=== PATIENT | male | born 1940 | race Caucasian/White ===

== ENCOUNTER 2017-03-02 18:24 | Inpatient (IN) ==
[2017-03-02] MEDS ORDERED: ZOFRAN IV ONE (19:10)
[2017-03-02] MEDS ORDERED: MORPHINE IV ONE (19:10)
[2017-03-02] MEDS ORDERED: NS 500 ML IV ONE (19:10)
[2017-03-02 19:31] LABS: MANUAL DIFF NEEDED? NO
[2017-03-02 19:36] LABS: BASO% 0.2 % (0.0-0.8); EOS# 0.02 X1000 (0.0-0.7); EOS% 0.2 % (0.0-10.0); HEMATOCRIT 48.7 % (42.0-52.0); IMM GRAN# 0.03 X1000 (0.0-0.04); IMM GRAN% 0.2 % (0.0-0.5); LYMPH% 7.9 % (20.5-51.1); MCH 30.2 PG (27-31); MCHC 34.9 g/dL (33-37); MCV 86.7 FL (81-99); MONO# 0.84 X1000 (0.11-0.59); MONO% 6.7 % (1.7-9.3); MPV 10.3 FL (7.4-10.4); NEUT% 84.8 % (42.2-75.2); PLT 206 X1000 (130-400); RBC 5.62 XMIL (4.7-6.1)
--- NOTE | 2017-03-02 19:43 | PROVIDER DOCUMENTATION ---
HPI-Abdominal Pain/GI Problem - General Chief Complaint: Abdominal Pain Stated Complaint: GENERAL Time Seen by Provider: 03/02/17 18:44 Source: patient Allergies/Adverse Reactions: Patient Allergies Allergy/AdvReac Type Severity Reaction Status Date / Time No Known Allergies Allergy Unverified 02/16/16 18:59 Home Medications: Home Medication List Medication Instructions Recorded Confirmed Last Taken Type Aspirin [Adult Low Dose Aspirin EC] 81 mg PO QAM 02/16/16 01/03/17 01/01/17 History Levothyroxine Sodium 50 mcg PO DAILY 02/16/16 01/03/17 01/02/17 08:00 History Tamsulosin [Flomax] 0.4 mg PO DAILY 01/03/17 01/03/17 01/02/17 08:00 History - History of Present Illness-ABD Nature of Presenting Problems: Pt is a 76 y/o M c chief complaint of generalized abd pain, body aches, chills x 1-2 days that are becoming progressively worse. Pt was contacted this afternoon by Dr. Ladd (GI) who reviewed his recent labs and noted an increased bilirubin. Pt has been working with his PCP, Dr. Hansen and Dr. Ladd to manage complications of cholecystectomy that was done over a year ago. On 01/03, Dr Hansen performed a choleangiopancreatography, removed a stone in the common bile duct, and placed a stent. Pt states he has been improved by the procedure but now feels that he is having biliary problems again. On arrival, pt is in minimal distress and has a low grade fever of 99F. Review of Systems - Adult - REVIEW OF SYSTEMS - ADULT Constitutional: reports: see HPI, chills. denies: fatique Eyes: reports: no symptoms reported. denies: blurred vision, double vision Ears, Nose, Mouth & Throat: reports: no symptoms reported. denies: ear pain, nose pain, throat pain Cardiovascular: reports: no symptoms reported. denies: chest pain, orthopnea Respiratory: reports: no symptoms reported. denies: cough, shortness of breath Gastrointestinal: reports: see HPI, abdominal pain. denies: nausea Genitourinary: reports: no symptoms reported. denies: dysuria, frequent UTI's, hematuria Musculoskeletal: reports: no symptoms reported. denies: joint pain, joint swelling Integumentary: reports: no symptoms reported Neurological: reports: no symptoms reported. denies: ataxia, loss of balance Psychiatric: reports: no symptoms reported. denies: anxiety, emotional problems Endocrine: reports: no symptoms reported. denies: cold intolerance, heat intolerance Hematologic/Lymphatic: reports: no symptoms reported. denies: blood clots, low blood count Allergic/Immunologic: reports: no symptoms reported All Other Systems: Reviewed and Negative Past History - Adult - PAST MEDICAL HISTORY-ADULT Review of Records: reports: Old Records Reviewed, Nursing Assessment Review, Medications Reviewed, Social history reviewed & non-contributory. Major Childhood Illnesses: reports: denies history Cardiovascular: reports: denies history Respiratory: reports: denies history Gastrointestinal: reports: cholelithiasis Obstetrical/Gynecological: reports: denies history Genitourinary: reports: denies history Musculoskeletal: reports: denies history Neurological: reports: denies history Endocrine/Immune: reports: denies history Other Conditions: reports: denies history - IMMUNIZATION STATUS Childhood Immunizations: See Nurse Assessment Flu Vaccine: See Nurse Assessment - FAMILY HISTORY Family History: reviewed, not pertinent Physical Exam-General - PHYSICAL EXAM-ADULT Initial Vital Signs Reviewed: Yes - CONSTITUTIONAL General Appearance: alert, no apparent distress - EYES Eyes: PERRL/EOMI, pink conjunctivae - HEAD, EARS, NOSE, MOUTH & THROAT HENMT: normocephalic/atraumatic, moist mucous membranes, normal ENT inspection - NECK Neck: normal inspection - RESPIRATORY Respiratory: chest non-tender, lungs clear, normal breath sounds - CARDIOVASCULAR Cardiovascular: normal peripheral pulses, regular rate, rhythm - GASTROINTESTINAL (ABDOMEN) Abdominal Exam: normal bowel sounds, non tender, soft - LYMPHATIC Lymphatic: no adenopathy - MUSCULOSKELETAL Back Exam: normal inspection, no CVA tenderness, no vertebral tenderness Extremity: normal range of motion, non-tender, normal inspection - SKIN Integumentary: normal color, normal turgor, warm/dry - NEUROLOGIC Neurologic: grossly normal, no motor/sensory deficits - PSYCHIATRIC Psych/Mental Status: normal mood/affect, normal thought content, normal thought process, oriented x 3 Progress - PLAN OF CARE/RESULTS Progress/Plan/Lab Results: Vital Signs - 8 hr 03/02/17 18:38 Temperature 99.4 F Pulse Rate 90 Respiratory Rate 18 Blood Pressure 186/82 O2 Sat by Pulse Oximetry 99 Laboratory Results - last 24 hr 03/02/17 19:14 WBC 12.62 H RBC 5.62 Hgb 17.0 Hct 48.7 MCV 86.7 MCH 30.2 MCHC 34.9 RDW Std Deviation 14.2 Plt Count 206 MPV 10.3 Immature Gran % (Auto) 0.2 Neut % (Auto) 84.8 H Lymph % (Auto) 7.9 L Screven % (Auto) 6.7 Eos % (Auto) 0.2 Baso % (Auto) 0.2 Immature Gran # (Auto) 0.03 Neut # (Auto) 10.71 H Lymph # (Auto) 1.00 L Screven # (Auto) 0.84 H Eos # (Auto) 0.02 Baso # (Auto) 0.02 Orders Category Date Time Status Saline Loc DIRECTED Care 03/02/17 18:45 Active NPO Diet 03/02/17 18:45 Active CHEST-2 VIEWS [RAD] Stat Exams 03/02/17 19:[address] ABD/PELVIS W/ IV CONT ONLY [CT] Stat Exams 03/02/17 19:09 Ordered AMYLASE [CHEM] Stat Lab 03/02/17 19:14 Received CBC WITH ELECTRONIC DIFF [HEME] Stat Lab 03/02/17 19:14 Completed COMPREHENSIVE METABOLIC PANEL [CHEM] Stat Lab 03/02/17 19:14 Received INFLUENZA SCREEN A/B Stat Lab 03/02/17 19:36 Ordered LIPASE [CHEM] Stat Lab 03/02/17 19:14 Received URINALYSIS W/POSS RFLX CULT-1 [URINALYSIS] Stat Lab 03/02/17 18:45 Uncollected 0.9% Sodium Chloride Inj [Ns] 500 ml Med 03/02/17 19:10 Active IV 999 mls/hr Morphine Med 03/02/17 19:10 Discontinued 4 mg IV NOW ONE Ondansetron [Zofran] Med 03/02/17 19:10 Discontinued 4 mg IV NOW ONE Result Diagrams: 03/02/17 19:14 03/02/17 19:14 - CT/MRI 1 CT Study: Abdomen, Pelvis Impression: Abnormal ( 1.Interval placement of a biliary stent as described. The proximal tip may be in the stump of the cystic duct rather than in the common bile duct or common hepatic duct. 2.Interval improvement of extrahepatic and intrahepatic biliary dilatation since the previous study. 3.Extensive diverticulosis coli but no evidence of diverticulitis. 4.Incidental/nonacute findings detailed above but no other sign of acute pathology.) - CONSULTS/PCP/HOSPITALIST Notification #1 *Consult/PCP/Hospitalist*: Dr. Ladd (GI) Time Discussed: 20:55 Reason/Comments: Give IV Cipro 4mg. Admit. Consult surgery. #2 Consult: Dr. Cunningham (Hospitalist) Time Discussed: 21:04 (Will see pt in the ER and consult surgery and GI. ) Departure - Departure Date of Disposition Decision: 03/02/17 Time of Disposition Decision: 20:56 DIAGNOSIS: Cholangitis due to bile duct calculus with obstruction Disposition: ADMITTED INPATIENT 09 Certified Medical Emergency: Emergent Condition: Stable Referrals and Follow-Ups: Ewelina Doll MD [Primary Care Provider] - - Critical Care Note This patient required my direct & personal management of CC.: No Attestation - Physician/ ZAY Attestation Patient care was provided by Advanced Practice Provider:: Yes Advanced Practice Provider:: Yemi Burleson Advanced Practice Provider documentation review:: The Mid-level provider documentation, treatment plan and medical decision making was reviewed by the physician who agrees with all treatment and medical decision making by the P.
[2017-03-02 19:55] LABS: AGAP 16; ALBUMIN 4.5 g/dL (3.5-5.0); ALKALINE PHOSPHATASE 163 U/L (32-122); AMYLASE 84 U/L (20-200); BUN 11 mg/dL (8-22); CHLORIDE 99 mmol/L (98-107); COSMO 278; GOT 78 U/L (10-34); GPT 105 U/L (10-44); LIPASE 76 U/L (13-60); POTASSIUM 4.7 mmol/L (3.5-5.1); SODIUM 139 mmol/L (136-145); TCO2 24 mmol/L (25-35); TOTAL PROTEIN 7.9 g/dL (6.3-8.3)
--- NOTE | 2017-03-02 20:02 | Diag Imaging Result Doc PS360 ---
EXAM: CHEST-2 VIEWS INDICATION: chills, body aches TECHNIQUE: 2 views COMPARISON: 12/31/2016 FINDINGS: The lungs are grossly clear. There is no discrete pleural fluid collection or pneumothorax. The cardiomediastinal silhouette and central vasculature are grossly unremarkable. IMPRESSION: No evidence of acute pathology by plain radiograph. Electronically signed by Yemi Chavez 03/02/2017 7:59 PM
--- NOTE | 2017-03-02 20:42 | Diag Imaging Result Doc PS360 ---
EXAM: CT ABD/PELVIS W/ IV CONT ONLY INDICATION: chills, body aches, susp biliary dz. COMPARISON: 01/01/2017 FINDINGS: There is a punctate calcified granuloma at the left lung base. There are calcified granulomata in the spleen. There has been a previous cholecystectomy. There has been interval placement of a biliary stent. The distal tip of the stent is in the lumen of the duodenum. The proximal tip of the stent may actually be in the stump of the cystic duct. The common hepatic duct measures up to 9.7 mm in diameter (10.6 mm previously). The common bile duct measures up to 10 mm in diameter (11 mm previously). There is still mild intrahepatic biliary dilatation, but it has improved. There is a punctate hypodensity involving the right hepatic lobe on image 19 of series 3 that is stable. This probably represents a tiny cyst. There is no evidence of pancreatic ductal dilatation. No discrete pancreatic mass is identified. The appendix is normal. There is severe diverticulosis coli mainly involving the descending and sigmoid colon. However, there is no evidence of diverticulitis. The kidneys are essentially unremarkable and stable. The urinary bladder is unremarkable. There is moderate patchy aortic atherosclerotic calcification but there is no evidence of aneurysm. No focal inflammatory changes, free abdominal gas, or free fluid is appreciated. The remainder of the solid viscera of the abdomen and pelvis and the remainder of the GI tract are essentially unremarkable. There is stable lumbar spondylosis. The bony structures are grossly intact. IMPRESSION: 1.Interval placement of a biliary stent as described. The proximal tip may be in the stump of the cystic duct rather than in the common bile duct or common hepatic duct. 2.Interval improvement of extrahepatic and intrahepatic biliary dilatation since the previous study. 3.Extensive diverticulosis coli but no evidence of diverticulitis. 4.Incidental/nonacute findings detailed above but no other sign of acute pathology. Electronically signed by Yemi Chavez 03/02/2017 8:40 PM
[2017-03-02] MEDS ORDERED: CIPRO 400 MG/D5W 400 MG/200 ML IVPB IV SCH (21:00)
[2017-03-02] MEDS ORDERED: CIPRO 400 MG/D5W 400 MG/200 ML IVPB IV ONE (22:00)
[2017-03-02] MEDS ORDERED: MOTRIN PO ONE (22:05)
[2017-03-02] MEDS ORDERED: MOTRIN ONE (22:06)
[2017-03-02 22:17] LABS: URINE CULTURE NEEDED? NO; URINE MICRO REVIEW NEEDED? NO; URINE SOURCE CLEAN CATCH
[2017-03-02 22:20] LABS: BILIRUBIN URINE NEGATIVE (NEGATIVE); BLOOD URINE TRACE (NEGATIVE); COLOR YELLOW; GLUCOSE URINE NEGATIVE (NEGATIVE); LEUKOCYTES URINE NEGATIVE (NEGATIVE); NITRITE URINE NEGATIVE (NEGATIVE); PROTEIN URINE TRACE mg/dL (NEGATIVE); TURBIDITY URINE CLEAR (CLEAR); UR EPITHELIAL CELLS <10 /HPF (<10); URINE BACTERIA NEGATIVE /HPF; URINE RBC <10 /HPF (<10); URINE WBC <10 /HPF (<10); UROBILINOGEN URINE NORMAL (NORMAL)
[2017-03-02 22:23] LABS: SP GRAVITY URINE 1.005
[2017-03-02] MEDS ORDERED: ZOFRAN IV PRN (22:48)
[2017-03-02] MEDS ORDERED: MORPHINE IV PRN (22:48)
[2017-03-02] MEDS: FLAGYL 500 MG/NS 500 MG/100 ML IVPB IV SCH (23:19)
[2017-03-02] MEDS: NS 1,000 ML IV SCH (23:20)
--- NOTE | 2017-03-03 00:01 | HISTORY AND PHYSICAL ---
PRIMARY CARE PHYSICIAN: Dr. Kamaljit Doll. REASON FOR ADMISSION: A 2-day history of weakness, 1-day history of fever and chills. HISTORY OF PRESENT ILLNESS: Mr. Sotero Snowden is a 76-year-old man, with past medical history of BPH and hypothyroidism, who is being followed by Dr. Hansen's service, regarding issues relating to his biliary tree. In 2016, patient had an elective laparoscopic cholecystectomy, which was complicated with subsequent bile leak. Since then, he has had a total of 3 ERCP procedures. The 1st one was done to put a stent to seal off the leak, and the second on was done to remove the stent, and the 3rd one was done less than 2 months ago, when it was found the patient was having fevers suggestive of cholangitis. At that time, they noticed a stone in the biliary tree, was an obstructing stone in the biliary tree, and it could only be partially removed, and a stent was placed there. Patient was put on ursodeoxycholic acid, to hopefully soften the stone, and allow for passage of the stone. The patient had been doing well up until about 2 days ago, when he started feeling weak, and developed diffuse aches and pains, mainly in his joints. He also had some epigastric discomfort. Today, the patient is having some intermittent fevers and chills, with rigors over the course of the day. Contacted Dr. Ladd, who was covering for Dr. Hansen, and they advised him to come to the ER to be evaluated further. He denies any pale stools. No itching. He does admit to having darker urine over the last couple of days. He has vomited once, but was nonbloody. Also the bowel movements, although, he says he has not been eating much for the last 2 days. No genitourinary complaints. No cardiorespiratory complaints. No neurological complaints. He admits to having a rash on his back and his chest, but this is usually related to heat rash he gets during the hot season. REVIEW OF SYSTEMS: A total of 12 systems review was done, positive findings were as noted above. ALLERGIES: None. MEDICATIONS: He is on Flomax 0.4 mg daily, levothyroxine 50 mcg daily, aspirin 81 mg daily. FAMILY HISTORY: Notable for Alzheimer's disease and stomach cancer in first- degree relatives. 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 He has also had umbilical hernia repair. He has had the aforementioned cholecystectomy , and 3 ERCP procedures. He has also had a tonsillectomy as child. SOCIAL HISTORY: Does not smoke, drink, or do drugs. for 4 year. LAB WORK: CT scan done today shows a stent in the biliary tree, but mainly in the cystic duct. There was also noted interval improvement of the extrahepatic and intrahepatic biliary dilatation on previous study. Diverticulosis is also noted. Chest x-ray was also done, and it showed no acute pathology. White count 12,000, hemoglobin and hematocrit 17 and 47, platelets 206,000 with 84% neutrophils. Glucose 116, total bilirubin is 7, up from 1.7. That is about from 1.7 less than a week ago. AST 78, ALT 105, alkaline phosphatase 163. Lipase 76. PHYSICAL EXAMINATION: VITAL SIGNS: Blood pressure is 186/82, heart rate is 90, respirations 18, temperature is 99.4, and 99% on room air. GENERAL: He is a pleasant, elderly, man, who is not in acute distress. He is A and O x3, with normal mood and affect. HEENT: Head is normocephalic, atraumatic. Eyes: BONILLA, EOMI. He is deeply icteric. He is not pale. ENT and oropharynx exam is grossly normal. No central cyanosis. NECK: Supple. No JVD or carotid bruit. No thyromegaly. LYMPH NODE: The neck and supraclavicular area are negative. CHEST: Reveals a few wheezes and rhonchi, with decreased entry in the bases. CARDIOVASCULAR: First and second heart sounds heard. No gallops or rubs. Rhythm is regular. ABDOMEN: Slightly protuberant, soft. No tenderness elicited. No mass or organomegaly appreciated. Bowel sounds are positive. RECTAL: Deferred. EXTREMITIES: Neurovascularly intact. No edema, clubbing or cyanosis. SKIN: Intact without breakdown, lesions or erythema. MUSCULOSKELETAL: Grossly normal. ASSESSMENT: 1. Acute cholangitis, probably secondary to sludge versus stone. 2. BPH. 3. Hypothyroidism. 4. Obstructive jaundice, secondary to possible stones or sludge. PLAN: At this time, Dr. Ladd was contacted, and she notified Dr. Hansen, and he recommended patient to be started on ciprofloxacin IV. I will add on Flagyl for anaerobic coverage, since there is evidence of infecdtion of the biliary tree. Dr. Villa, who is his surgeon of note, and is following him will be consulted to also see. IV fluid hydration will be initiated, and he will be treated symptomatically pending the GI evaluation. The patient will be kept NPO pending further evaluation. Dr. Mari, or his associate, will take over management of the patient in the morning. cc: MD Samantha Connor MD Mussarrat Yousuf MTDD
[2017-03-03] MEDS: FLAGYL 500 MG/NS 500 MG/100 ML IVPB IV SCH ×4 (04:03→22:33)
[2017-03-03] MEDS: NS 1,000 ML IV SCH ×2 (05:43→16:42)
[2017-03-03 06:15] LABS: BASO% 0.2 % (0.0-0.8); EOS# 0.01 X1000 (0.0-0.7); EOS% 0.1 % (0.0-10.0); HEMATOCRIT 42.9 % (42.0-52.0); HEMOGLOBIN 14.6 g/dL (14.0-18.0); IMM GRAN# 0.02 X1000 (0.0-0.04); IMM GRAN% 0.2 % (0.0-0.5); LYMPH# 0.73 X1000 (1.2-3.4); LYMPH% 6.3 % (20.5-51.1); MANUAL DIFF NEEDED? YES; MCH 29.9 PG (27-31); MCV 87.7 FL (81-99); MONO% 7.7 % (1.7-9.3); MPV 10.7 FL (7.4-10.4); NEUT% 85.5 % (42.2-75.2); PLT 168 X1000 (130-400); RBC 4.89 XMIL (4.7-6.1)
[2017-03-03 06:40] LABS: ALBUMIN 3.5 g/dL (3.5-5.0); TOTAL BILIRUBIN 4.67 mg/dL (0.20-1.00); TOTAL PROTEIN 6.3 g/dL (6.3-8.3)
[2017-03-03 07:16] LABS: BANDS 12 % (0-1); LYMPHS 8 % (21-51); MONO 4 % (1-9)
[2017-03-03] MEDS: SYNTHROID PO SCH (08:08)
[2017-03-03] MEDS: CIPRO 400 MG/D5W 400 MG/200 ML IVPB IV SCH ×2 (08:08→21:18)
[2017-03-03] MEDS: FLOMAX PO SCH (08:08)
--- NOTE | 2017-03-03 12:19 | PROGRESS NOTE ---
DATE: 03/03/2017 SUBJECTIVE: The patient states that he feels a little bit better today. The worst aspect of his admission was he had a rigor down in the emergency room and vomited several times. He states that over the course of last night he was coughing up some green, thick stuff. That seems to have dissipated and gone away. He does not feel as though he aspirated though while he was vomiting. The patient's chart was reviewed in its entirety in order to get a clear picture of the time course of onset of symptoms and his past medical history. OBJECTIVE: Vital signs: 98.3, 77, 17, 131/75, 97% saturated on room. General: In general, he is a well-developed, white male, in no acute distress. He is alert, oriented, conversive, and appropriate. Cardiovascular: Regular without appreciable murmur or gallop. Lungs: The patient had a faint end-expiratory wheeze in the right upper lobe distribution but was otherwise moving air well and in no respiratory distress. Abdomen: Soft. Bowel sounds were present. Extremities: No peripheral edema. LABORATORY: White count was 11.6, hematocrit 42.9, creatinine 1.2, total bilirubin 4.67. ASSESSMENT AND PLAN: 1. It is likely the patient will have an ERCP tomorrow with removal of the long stent and hopefully the previously noted stone in the common bile duct will be able to be removed. It is likely that he will have to have another stent but if the stone is actually removed then probably a shorter stent can be used. 2. The patient will remain on antibiotics in the event that the above-mentioned rigor indicated a bacteremia from ascending cholangitis. We will continue to monitor liver function tests and keep on antibiotics as long as appropriate. The patient stated that blood cultures were drawn but I do not see any results in the microbiology section of the chart. 3. The patient will remain NPO until definitive procedures can be performed. He is reasonably comfortable expressed no acute needs. cc: MD Samantha Morgan MD
[2017-03-03] MEDS: TYLENOL PO PRN (13:04)
--- NOTE | 2017-03-03 16:44 | CONSULTATION ---
DATE OF CONSULTATION: 03/03/2017 REASON FOR CONSULTATION: Cholangitis. HISTORY OF PRESENT ILLNESS: A 76-year-old male known to our service for cholecystectomy last year, complicated by postoperative bile leak and retained common bile duct stone. He has been treated with laparoscopic washout and drain placement which has subsequently been removed as well as endoscopic retrograde cholangiopancreatography with partial stone removal and stent placement. As of last month and a new stent was placed and an impacted stone in the ampulla was only partially removed. He had been doing okay until 2 nights ago he started experiencing some chills, followed by a fever as high as 103 yesterday and overall body aches. His laboratory evaluation revealed elevated bilirubin and he has been admitted for further care. PAST MEDICAL HISTORY: Hypothyroidism, BPH, hyperlipidemia, osteoarthritis, history of AV node dysfunction, status post ablation. PAST SURGICAL HISTORY: Laparoscopic cholecystectomy. Hernia repair. Tonsillectomy and adenoidectomy. ERCP with stent placements. HOME MEDICATIONS: Levothyroxine, aspirin, Flomax, ursodiol. ALLERGIES: No known drug allergies. FAMILY HISTORY: Reviewed and noncontributory. SOCIAL HISTORY: No tobacco, alcohol or illicit drug use. He is . REVIEW OF SYSTEMS: Ten systems reviewed and negative except as noted above. PHYSICAL EXAMINATION: Vital Signs: Temperature 98.3 degrees, pulse 77, respirations 17, blood pressure 131/75, O2 saturation 97%. General: Well-developed, well-nourished male, in no distress who looks his stated age. HEENT: Normocephalic, atraumatic. Extraocular muscles intact. Pupils equal, round, reactive to light. Sclerae mildly icteric. Moist mucous membranes. Neck: Supple. No thyromegaly. CARDIOVASCULAR: Regular rate and rhythm. Respiratory: Bilateral equal breath sounds. No work of breathing. GI: Soft, nontender, nondistended. No organomegaly or mass. Skin: Warm and dry. Perhaps some mild jaundice is noted. Extremities: No clubbing, cyanosis, or edema. Musculoskeletal: Moves all extremities equally and well. LABORATORY: White blood cell count 11.7, hemoglobin 14.6, sodium 135, potassium 5, chloride 100, CO2 of 22, BUN 17, creatinine 1.2, glucose 98, total bilirubin 7 yesterday, 4.7 today. AST 50, ALT 74, alkaline phosphatase 120. IMAGING: CT of abdomen pelvis was reviewed which shows a biliary stent with the distal tip in the lumen of the duodenum and the proximal tip possibly in the cystic duct. The common hepatic duct measures 9.7 mm and the common bile duct measures 10 mm. There is mild intrahepatic biliary dilation, but this is overall improved. ASSESSMENT/PLAN: A 76-year-old male with probable common bile duct obstruction secondary to choledocholithiasis or malpositioned or obstructed stent. He has some signs of early cholangitis, although he is hemodynamically stable. I would continue with his Zosyn and consult Gastroenterology for endoscopic retrograde cholangiopancreatography to attempt to remove the remaining stone and/or reposition the stent. If nonoperative measures fail, then open common bile duct exploration would be an option. cc: MD Samantha Lee MD
--- NOTE | 2017-03-03 19:09 | CONSULTATION ---
DATE OF CONSULTATION: 03/03/2017 REFERRING PHYSICIAN: Ting Cunningham M.D. PRIMARY CARE PROVIDER: Eleazar Doll M.D. PRIMARY MACHINE PLASTER MIXER: Marco Hansen M.D. PRIMARY SURGEON: Sergey Villa M.D. INDICATION FOR CONSULTATION: 1. Nausea with vomiting. 2. Fever. 3. History of retained common bile duct stone. 4. Probable ascending cholangitis. HISTORY OF PRESENT ILLNESS: The patient is a 76-year-old white male who underwent an elective laparoscopic cholecystectomy in January 2016. His postop course was complicated by a bile leak. Since that time, he has undergone 3 ERCP procedures. Initially, a stent was placed to seal off the leak. The 2nd procedure, he had removal of the stent with good success. However, approximately 2 months ago he had a 3rd ERCP due to the presence of a common bile duct stone. Unfortunately, the largest portion of the common bile duct stone was not retrieved during the ERCP. He underwent stent placement during the ERCP. A stent was placed in the common bile ducts with plans for repeat ERCP and stent removal within the next month. However, the patient contacted our office via the answering service. He reports the onset of fever to 101.4, chills and right upper quadrant pain. In the emergency room, he had an episode of severe chills, followed by nausea with vomiting and increased epigastric and right upper quadrant pain. On labs, he was found to have an elevated white blood cell count. His CT scan showed the presence of a stent in the biliary tree with part of the stent being visualized in the cystic duct. There was interval improvement of the intrahepatic and extrahepatic dilation. There was no comment made with regard to the absence or presence of a common bile duct stone. He was noted to have diverticulosis, but no evidence of diverticulitis. On serum chemistry, his bilirubin was elevated to 7, up from 1.7. He also was noted to have a mild elevation of his liver function tests. His clinical presentation is consistent with ascending cholangitis. PAST MEDICAL HISTORY: 1. Common bile duct stones. 2. History of colon polyps. 3. AV jackie reentry tachycardia. 4. Hyperlipidemia. 5. Osteoporosis. 6. Cardiovascular disease status post EP study with ablation. 7. Elevated PSA. 8. History of gallstones, status post cholecystectomy. 9. Hypothyroidism. PAST SURGICAL HISTORY: 1. Tonsillectomy. 1. Cholecystectomy complicated by bile duct leak. He is status post ERCP x3. 2. Umbilical hernia. MEDICATION ALLERGIES: None. HOME MEDICATIONS: 1. Ursodiol. 2. Flomax. 3. Levothyroxine. 4. Aspirin 81 mg. REVIEW OF SYSTEMS: Remarkable for diffuse abdominal tenderness, greatest in the right upper quadrant. He reports interval resolution of the nausea with vomiting. He is having flatus, but denies defecation since admission. He notes mild nausea, but no heartburn, indigestion, or chest pain. PHYSICAL EXAMINATION: General: He is resting comfortably in the bed. Vital signs: His blood pressure is 142/69, pulse 73, respirations 17, temperature of 97.9 degrees. HEENT: Remarkable for mild jaundice. His conjunctivae are normal. His oropharyngeal mucosa membranes are moist. Pulmonary: Lungs are clear to auscultation with normal expiratory effort. Cardiovascular: Reveals regular rate and rhythm with no gallops or rubs. Abdominal: Reveals normoactive bowel sounds. The abdomen is soft with moderate right upper quadrant tenderness and mild diffuse tenderness. There is no rebound or guarding. There is no organomegaly. Extremities: Bilaterally are negative for cyanosis, clubbing, or edema. OBJECTIVE DATA: Remarkable for a hemoglobin of 14.6 with hematocrit of 42.9, and a white count 11.67. He has 168,000 platelets. Sodium is 135, potassium 5, chloride 100, CO2 22, BUN 17, creatinine 1.2 with a glucose of 98. His calcium is 9, total bilirubin is 4.67 which is an interval reduction from his admission bilirubin of 7. His AST is 50 with an ALT of 74 and alkaline phosphatase of 120. Total protein is 6.3 with an albumin of 3.5. IMPRESSION: 1. Ascending cholangitis. 2. Retained common bile duct stone. 3. Jaundice. 4. Right upper quadrant pain. RECOMMENDATION: 1. The patient is currently receiving ciprofloxacin and Flagyl for ascending cholangitis. I would continue these antibiotics. 2. He is on the schedule for endoscopic retrograde cholangiopancreatography by Dr. Marco Hansen in the morning. 3. Continue supportive care. 4. The patient is currently nothing per oral due to the nausea with vomiting. We will continue this along with IV fluids for hydration. 5. Additional recommendations to follow by Dr. Marco Hansen who will assume care on 03/04/2017. cc: MD Samantha Mathur MD Olakunle P. Akinsoto, MD Khurshid Yousuf, MD Matthew L. Figh, MD MTDD
[2017-03-04] MEDS: NS 1,000 ML IV SCH ×4 (02:24→22:45)
[2017-03-04] MEDS: CIPRO 400 MG/D5W 400 MG/200 ML IVPB IV SCH ×2 (08:26→21:03)
[2017-03-04 08:36] LABS: BASO% 0.2 % (0.0-0.8); EOS# 0.24 X1000 (0.0-0.7); EOS% 2.8 % (0.0-10.0); HEMOGLOBIN 13.9 g/dL (14.0-18.0); LYMPH% 8.2 % (20.5-51.1); MANUAL DIFF NEEDED? NO; MCH 29.6 PG (27-31); MCHC 33.9 g/dL (33-37); MCV 87.4 FL (81-99); MONO# 0.85 X1000 (0.11-0.59); MONO% 9.9 % (1.7-9.3); MPV 10.4 FL (7.4-10.4); NEUT% 78.9 % (42.2-75.2); PLT 155 X1000 (130-400); RBC 4.69 XMIL (4.7-6.1)
[2017-03-04 09:29] LABS: AGAP 14; ALBUMIN 3.3 g/dL (3.5-5.0); ALKALINE PHOSPHATASE 96 U/L (32-122); BUN 15 mg/dL (8-22); CHLORIDE 102 mmol/L (98-107); COSMO 273; GOT 35 U/L (10-34); GPT 50 U/L (10-44); POTASSIUM 4.1 mmol/L (3.5-5.1); SODIUM 136 mmol/L (136-145); TCO2 20 mmol/L (25-35); TOTAL BILIRUBIN 2.24 mg/dL (0.20-1.00); TOTAL PROTEIN 5.8 g/dL (6.3-8.3)
[2017-03-04] MEDS: FLOMAX PO SCH (10:02)
[2017-03-04] MEDS: SYNTHROID PO SCH (10:02)
--- NOTE | 2017-03-04 10:08 | PROGRESS NOTE ---
DATE: 03/04/2017 SUBJECTIVE: Patient feeling okay. No significant abdominal pain. He has been started on antibiotics. He is scheduled to have an ERCP today. OBJECTIVE: Vital Signs: Patient is currently afebrile. His vital signs have been stable. General Examination: No acute distress. Cardiovascular: Regular rate and rhythm. HEENT: Normocephalic, atraumatic. Pupils equal, round, and reactive to light. Some faint scleral icterus noted. Mucous membranes moist. Neck: Supple. Trachea midline. Abdomen: Soft, nondistended. Essentially nontender at this point. Lungs: Grossly clear. Extremities: Moves all extremities. Neurologic: Grossly intact. Skin: Some faint jaundice. Vascular: All extremities perfused. Laboratory: White blood cell count from this morning is 8, which is down from 11, which is down from 12 from admission. No CMP from this morning. CT scan from admission reviewed that showed an improvement in the biliary dilatation. ASSESSMENT AND PLAN: A 76-year-old, male with choledocholithiasis. Choledocholithiasis with cholangitis. At this time, the patient is clinically doing okay. He is on antibiotics. He is scheduled for an ERCP today by Dr. Hansen. I will follow up with the results. Hopefully, they can remove the stone by ERCP and exchange for a stent to relieve the symptoms. I would suggest multiple attempts in an ERCP before having any kind of major surgical intervention. If they are unsuccessful with multiple attempts in an ERCP, would consider as the last resort an open common bile duct exploration but again, would like to try multiple attempts with the ERCP. Discussed this with the family. cc: MD Samantha Martin MD
[2017-03-04] MEDS: FLAGYL 500 MG/NS 500 MG/100 ML IVPB IV SCH ×4 (10:31→22:45)
[2017-03-04] MEDS ORDERED: GLUCAGON ONE (11:45)
[2017-03-04] MEDS ORDERED: PROTONIX IV ONE (12:49)
[2017-03-04] MEDS ORDERED: SODIUM CHLORIDE 0.9% INJ ONE (12:49)
[2017-03-04] MEDS ORDERED: DIPRIVAN 1% ONE (13:01)
[2017-03-04] MEDS ORDERED: XYLOCAINE-MPF 2% ONE (13:06)
[2017-03-04] MEDS ORDERED: LR 1,000 ML ONE (13:06)
--- NOTE | 2017-03-04 13:11 | Diag Imaging Result Doc PS360 ---
ERCP-BILIARY AND PANCREATIC - 03/04/2017 INDICATION: Choledocholithiasis and cholangitis TECHNIQUE: The exam was performed by the patient's endoscopist. Three images were submitted. COMPARISON: CT from 03/02/2017 FINDINGS: There was a filling defect consistent with a stone in the mid common bile duct. This was removed by the endoscopist. No stent placed. IMPRESSION: No evidence of complication. Electronically signed by Ever Fay 03/04/2017 1:08 PM
--- NOTE | 2017-03-04 13:52 | OPERATIVE NOTE ---
PROCEDURE DATE: 03/04/2017 PROCEDURE: Endoscopic retrograde cholangiopancreatography and stent removal. MEDICATIONS: As per Anesthesia SCOPE USED: Olympus duodenoscope. HISTORY: This is a 76-year-old gentleman, who has history of choledocholithiasis. He had ERCP and stent was placed earlier. He was admitted to hospital with evidence of ascending cholangitis. He is here for stent removal and stone extraction. DESCRIPTION OF PROCEDURE: Informed consent obtained from the patient. The procedure, risks, benefits, alternatives were explained. Patient understood, all his pertinent questions answered. Risks of, but not limited to bleeding, perforation, aspiration, pneumonia, and pancreatitis was explained. He understood and agreed to proceed. Patient was brought to the endoscopy unit and was premedicated as per Anesthesia. After adequate sedation, while he was lying in left lateral position, the duodenoscope was introduced into the posterior pharynx and advanced manually into the esophagus. Through the esophagus, it was advanced into the stomach. The stomach was insufflated. There was a small quantity of gastric secretions noted, which was suctioned out. The visualized portion of the stomach revealed evidence of hemorrhagic gastritis. No distinct ulcer, AVM, or masses were seen. Scope was then passed through the normal pylorus, into the duodenal bulb and then 2nd part duodenum. There was evidence of significant duodenitis involving both the bulb as well as the 2nd portion of the duodenum. These were superficial erosions with some hemorrhage. The stent was seen coming out of the major papilla. Using a snare, the distal end of the stent was grasped and it was removed without difficulty. The scope was then reintroduced back into the stomach and then back to the second portion of the duodenum. Using the cannula, common bile duct was cannulated and contrast injected. Cholangiogram obtained, which revealed a filling defect in the distal common bile duct, which was floating up and down. The filling defect was cylindrical in shape and it appeared to be 1 cm x 8 mm in size. Using an extraction balloon I was able to remove the stone in pieces. The stone was soft to firm, dark yellow color. After multiple swipes, I was able to remove the stone in its entirety. After that, I used the balloon to obtain occlusion cholangiogram, which did not reveal any further evidence of filling defects within the intrahepatic or extrahepatic ducts. The contrast was flowing out nicely. The scope was then withdrawn. Patient tolerated the procedure well. No complications noted. Patient was then transferred to the recovery area in a stable condition. IMPRESSION: Choledocholithiasis, stone removed after stent removal. RECOMMENDATION: I would continue on antibiotic and I would add proton pump inhibitor and we will follow. We will follow his labs. Depending on his progress, further plans made. cc: MD Samantha Mtz MD MTDD
--- NOTE | 2017-03-04 14:04 | PROGRESS NOTE ---
DATE: 03/04/2017 SUBJECTIVE: Mr. Sotero Pérez was admitted to [facility] with acute transaminitis. He denies any further fever, chills, nausea or vomiting. Liver function tests continue to improve. His total bilirubin has dropped from 7.0 to 2.24. His AST was 35, the ALT was 50. He has been scheduled for an ERCP today. OBJECTIVE: Vital signs: Temperature 98.6 degrees, pulse 78, respirations 16, BP 148/81. CV: Regular rate and rhythm. Lungs: Clear. Abdomen: Soft, nontender, with active bowel sounds. ASSESSMENT AND PLAN: Transaminitis. Clinically he continues to improve. We will continue broad- spectrum antibiotics including Cipro and Flagyl for the ascending cholangitis. He is scheduled for an ERCP later today. cc: Samantha Doll MD
[2017-03-04] MEDS: TYLENOL PO PRN (14:42)
[2017-03-05] MEDS: FLAGYL 500 MG/NS 500 MG/100 ML IVPB IV SCH (04:23)
[2017-03-05] MEDS: NS 1,000 ML IV SCH ×2 (05:07→07:26)
[2017-03-05] MEDS: PRILOSEC PO SCH ×2 (05:40→06:13)
[2017-03-05 05:54] LABS: MANUAL DIFF NEEDED? NO
[2017-03-05 06:07] LABS: BASO% 0.3 % (0.0-0.8); EOS# 0.45 X1000 (0.0-0.7); EOS% 7.2 % (0.0-10.0); HEMATOCRIT 40.3 % (42.0-52.0); HEMOGLOBIN 13.7 g/dL (14.0-18.0); LYMPH# 0.99 X1000 (1.2-3.4); LYMPH% 15.8 % (20.5-51.1); MCH 29.5 PG (27-31); MCV 86.9 FL (81-99); MONO# 0.67 X1000 (0.11-0.59); MONO% 10.7 % (1.7-9.3); MPV 11.2 FL (7.4-10.4); PLT 177 X1000 (130-400); RBC 4.64 XMIL (4.7-6.1)
[2017-03-05 06:30] LABS: AGAP 11; ALKALINE PHOSPHATASE 139 U/L (32-122); BUN 8 mg/dL (8-22); CALCIUM 8.6 mg/dL (8.8-10.2); CHLORIDE 107 mmol/L (98-107); COSMO 278; GOT 62 U/L (10-34); GPT 57 U/L (10-44); POTASSIUM 4.4 mmol/L (3.5-5.1); SODIUM 140 mmol/L (136-145); TCO2 22 mmol/L (25-35); TOTAL BILIRUBIN 2.64 mg/dL (0.20-1.00); TOTAL PROTEIN 5.6 g/dL (6.3-8.3)
--- NOTE | 2017-03-05 06:40 | PROGRESS NOTE ---
DATE: 03/05/2017 SUBJECTIVE: Patient doing okay. He had a successful ERCP with stone extraction yesterday by Dr. Hansen. On completion cholangiogram, there appeared to be no other filling defects. Overall, he is doing well. OBJECTIVE: Vital Signs: Patient is currently afebrile. His vital signs have been stable. General Examination: No acute distress. HEENT: Normocephalic, atraumatic. Pupils equal, round, reactive to light. Mucous membranes moist. Oropharynx benign. Neck: Supple. Trachea midline. Cardiovascular: Regular rate and rhythm. Lungs: Grossly clear. Abdomen: Soft, nontender, nondistended. Extremities: Moves all extremities. Neurologic: Grossly intact. Skin: No signs of jaundice. Vascular: All extremities perfused. Laboratory: CMP is still pending. His white blood cell count is 6 which is down from 8. ASSESSMENT/PLAN: A 76-year-old, male with choledocholithiasis . Choledocholithiasis and cholangitis. At this time, the patient is clinically doing well. He had a successful ERCP with stone extraction. From a clinical point of view, he is likely stable enough to be discharged home. He is currently on antibiotics. I will defer antibiotic duration to his primary care physician and Dr. Hansen. From a surgical point of view, no intervention needed. We will monitor him peripherally. He can see me in the office as needed. cc: MD Samantha Martin MD
[2017-03-05 07:28] VITALS: BP 143/77
[2017-03-05] MEDS: FLOMAX PO SCH ×2 (07:52→09:20)
[2017-03-05] MEDS: CIPRO 400 MG/D5W 400 MG/200 ML IVPB IV SCH (07:52)
[2017-03-05] MEDS: SYNTHROID PO SCH ×2 (07:52→09:21)
[2017-03-05] MEDS ORDERED: FLAGYL PO SCH (09:00)
[2017-03-05] MEDS ORDERED: CIPRO PO SCH (09:00)
--- NOTE | 2017-03-06 22:11 | DISCHARGE SUMMARY ---
ADMISSION DATE: 03/02/2017 DISCHARGE DATE: 03/05/2017 DISCHARGE DIAGNOSES: 1. Ascending cholangitis with sepsis 2. Cholangitis due to bile duct calculus with obstruction. 3. Gastroesophageal reflux disease. 4. Benign prostatic hypertrophy. 5. Primary hypothyroidism. 1. Return to clinic in one week to see me,Dr. Kamaljit Doll, for a transition of care visit. 2. bland diet 3. activity as tolerated 4. MEDS- ASA 81mg daily, Omaprezole 40mg daily, Levothyroxine 50mcg daily, Flomax 0.4mg daily, Flagyl 500mg TID for 7 days and Cipro 500mg BID for 7 days DISCHARGE PHYSICAL EXAMINATION: General: This is a well-developed, well- nourished, 76-year-old, gentleman, in no apparent distress. Vital Signs: He is afebrile. Vital signs are stable. Cardiovascular: Regular rate and rhythm. Lungs: Clear. Abdomen: Soft, nontender, with active bowel sounds. HOSPITAL COURSE: Mr. Snowden presented to the ER complaining of abdominal pain, nausea, vomiting, fever as high as 103degrees, and hard shaking rigors. His initial CT scan of the abdomen and pelvis demonstrated interval placement of a biliary stent. He still had extrahepatic and intrahepatic biliary dilatation. On admission, he had a leukocytosis of 12, 000. His bilirubin was 7.0. His AST was 78. ALT was 105. He was tachycardic on admission. The patient was hydrated with normal saline and was held n.p.o. We began broad-spectrum antibiotics including Cipro and Flagyl. We felt that he had sepsis. Dr. Hansen was consulted to see the patient. A follow-up ERCP demonstrated a filling defect with a stone in the mid common bile duct. Dr. Hansen was successfully able to remove the stone and placed a biliary stent. Over the course of his hospitalization his bilirubin trended downward. At discharge his bilirubin was 2.64. His liver function tests had nearly normalized. He had no further nausea or vomiting. We advanced his diet as tolerated and he was tolerating a mechanical soft diet at the time of discharge. He will complete an additional 7 day course of Cipro 500 mg b.i.d. and Flagyl 500 mg t.i.d. I will see him as an outpatient in 1 week for a follow-up visit. Having reached maximum hospital benefit, the patient was discharged in stable condition. cc: Samantha Doll MD MTDD
== END 2017-03-05 09:32 | disposition home or self-care (01) ==
LOC: ED 18:24 → 4N 21:31 → SUATTDRO 21:31 → 4N 22:47
PROVIDERS: ADMIT Internal Medicine; ATTEND Internal Medicine
PROC: EN.ERCP (2017-03-04 11:47)